=== PATIENT | male | born 1945 | race Caucasian/White ===

== ENCOUNTER 2018-05-04 18:18 | Inpatient (IN) | payer MEDICARE, OTHER ==
[2018-05-04 19:10] LABS: ADD MAN DIFF? NO
[2018-05-04] MEDS: ONDANSETRON 4 MG INJ IV (19:12)
[2018-05-04] MEDS: SOD CHLORIDE 0.9% 1,000 ML IV (19:12)
[2018-05-04 19:14] LABS: WHITE BLOOD COUNT 12.7 10^3/ul (4.8-10.8)
[2018-05-04 19:14] LABS: ABNORMAL IP MESSAGE 1; BASOPHIL # 0.1 10^3/ul (0.0-0.1); BASOPHILS % 0.6 % (0.0-2.0); EOSINOPHILS # 0.2 10^3/ul (0.0-0.5); EOSINOPHILS % 1.3 % (0.0-7.0); HEMATOCRIT 41.1 % (42.0-52.0); HEMOGLOBIN 13.8 g/dl (14.0-18.0); LYMPHOCYTES # 6.3 10^3/ul (0.8-2.9); LYMPHOCYTES % 49.7 % (15.0-51.0); MEAN CORPUSCULAR HEMOGLOBIN 30.2 pg (29.0-33.0); MEAN CORPUSCULAR HGB CONC 33.6 g/dl (32.0-37.0); MEAN CORPUSCULAR VOLUME 89.9 fl (82.0-101.0); MEAN PLATELET VOLUME 8.8 fl (7.4-10.4); MONOCYTE # 0.9 10^3/ul (0.3-0.9); MONOCYTES % 7.3 % (0.0-11.0); NEUTROPHIL # 5.1 10^3/ul (1.6-7.5); NEUTROPHILS % 40.5 % (39.0-77.0); PLATELET COUNT 327 10^3/UL (140-415); POSITIVE DIFF @See below; RED BLOOD COUNT 4.57 10^6/ul (4.70-6.10); RED CELL DISTRIBUTION WIDTH 17.7 % (11.5-14.5)
[2018-05-04 19:34] LABS: ALANINE AMINOTRANSFERASE 78 IU/L (13-69); ALBUMIN 4.7 g/dl (3.3-4.9); ALBUMIN/GLOBULIN RATIO 1.46; ALKALINE PHOSPHATASE 125 IU/L (42-121); ANION GAP 16 (5-13); ASPARTATE AMINO TRANSFERASE 97 IU/L (15-46); BILIRUBIN,INDIRECT 0.4 mg/dl (0-1.1); BILIRUBIN,TOTAL 0.4 mg/dl (0.2-1.3); BLOOD UREA NITROGEN 19 mg/dl (7-20); CALCIUM 9.9 mg/dl (8.4-10.2); CARBON DIOXIDE 32 mmol/L (21-31); CHLORIDE 93 mmol/L (97-110); CREATININE 1.01 mg/dl (0.61-1.24); GLUCOSE 97 mg/dl (70-220); LIPASE 160 U/L (23-300); POTASSIUM 4.2 mmol/L (3.5-5.1); SODIUM 141 mmol/L (135-144); TOTAL PROTEIN 7.9 g/dl (6.1-8.1)
[2018-05-04] MEDS: LORAZEPAM 2 MG INJ IV (20:06)
[2018-05-04] MEDS: ALBUTEROL 0.083% (NEB) 2.5 MG/3 ML AMP NEB (20:13)
[2018-05-05] MEDS: LORAZEPAM 2 MG INJ IV ×2 (04:57→10:33)
[2018-05-05] MEDS: LABETALOL HCL 20MG INJ IV (09:46)
[2018-05-05 10:12] LABS: ADD MAN DIFF? NO
[2018-05-05 10:16] LABS: WHITE BLOOD COUNT 10.1 10^3/ul (4.8-10.8)
[2018-05-05 10:16] LABS: BASOPHIL # 0.1 10^3/ul (0.0-0.1); BASOPHILS % 0.5 % (0.0-2.0); EOSINOPHILS % 0.3 % (0.0-7.0); HEMATOCRIT 41.2 % (42.0-52.0); HEMOGLOBIN 13.6 g/dl (14.0-18.0); LYMPHOCYTES # 2.7 10^3/ul (0.8-2.9); LYMPHOCYTES % 26.6 % (15.0-51.0); MEAN CORPUSCULAR HEMOGLOBIN 29.7 pg (29.0-33.0); MEAN PLATELET VOLUME 9.1 fl (7.4-10.4); MONOCYTE # 1.1 10^3/ul (0.3-0.9); MONOCYTES % 10.5 % (0.0-11.0); NEUTROPHIL # 6.2 10^3/ul (1.6-7.5); NEUTROPHILS % 61.5 % (39.0-77.0); PLATELET COUNT 283 10^3/UL (140-415); RED BLOOD COUNT 4.58 10^6/ul (4.70-6.10)
[2018-05-05] MEDS: MAGNESIUM SULFATE 2 GM, MULTIVITAMINS 10 ML, THIAMINE 100 MG, FOLIC ACID 1 MG in SOD CH... IV (10:22)
[2018-05-05 10:39] LABS: ALANINE AMINOTRANSFERASE 76 IU/L (13-69); ALBUMIN 4.3 g/dl (3.3-4.9); ALBUMIN/GLOBULIN RATIO 1.72; ALKALINE PHOSPHATASE 105 IU/L (42-121); ANION GAP 12 (5-13); ASPARTATE AMINO TRANSFERASE 74 IU/L (15-46); BILIRUBIN,INDIRECT 0.6 mg/dl (0-1.1); BILIRUBIN,TOTAL 0.6 mg/dl (0.2-1.3); BLOOD UREA NITROGEN 22 mg/dl (7-20); CALCIUM 9.6 mg/dl (8.4-10.2); CARBON DIOXIDE 32 mmol/L (21-31); CHLORIDE 97 mmol/L (97-110); CREATININE 0.83 mg/dl (0.61-1.24); GLUCOSE 148 mg/dl (70-220); POTASSIUM 4.1 mmol/L (3.5-5.1); SODIUM 141 mmol/L (135-144); TOTAL PROTEIN 6.8 g/dl (6.1-8.1)
[2018-05-05 10:43] LABS: ETHANOL < 10.0 mg/dl (0-0)
[2018-05-05] MEDS ORDERED: ACETAMINOPHEN 325 MG TAB PO (11:00)
[2018-05-05] MEDS: hydrALAzine 20 MG INJ IV (13:51)
[2018-05-05] MEDS: CHLORDIAZEPOXIDE 25 MG CAP PO ×2 (15:51→20:19)
[2018-05-05] MEDS: PANTOPRAZOLE (EC) 40 MG TAB PO (18:25)
[2018-05-05] MEDS: THIAMINE 100 MG TAB PO (20:18)
[2018-05-05] MEDS: ONDANSETRON 4 MG INJ IV (20:31)
[2018-05-05] MEDS: NACL 0.9% 3 ML SYG IV (20:33)
[2018-05-06] MEDS: CHLORDIAZEPOXIDE 25 MG CAP PO ×6 (01:59→23:59)
[2018-05-06 06:30] LABS: ADD MAN DIFF? NO
[2018-05-06 06:46] LABS: WHITE BLOOD COUNT 7.1 10^3/ul (4.8-10.8)
[2018-05-06 06:46] LABS: BASOPHILS % 0.6 % (0.0-2.0); EOSINOPHILS # 0.2 10^3/ul (0.0-0.5); EOSINOPHILS % 2.5 % (0.0-7.0); HEMATOCRIT 39.6 % (42.0-52.0); LYMPHOCYTES # 2.2 10^3/ul (0.8-2.9); LYMPHOCYTES % 31.4 % (15.0-51.0); MEAN CORPUSCULAR HEMOGLOBIN 29.8 pg (29.0-33.0); MEAN CORPUSCULAR HGB CONC 32.8 g/dl (32.0-37.0); MEAN CORPUSCULAR VOLUME 90.8 fl (82.0-101.0); MONOCYTES % 13.4 % (0.0-11.0); NEUTROPHIL # 3.7 10^3/ul (1.6-7.5); NEUTROPHILS % 51.5 % (39.0-77.0); PLATELET COUNT 224 10^3/UL (140-415); RED BLOOD COUNT 4.36 10^6/ul (4.70-6.10)
[2018-05-06 07:02] LABS: HEMOGLOBIN A1C 5.8 % (0-5.9)
[2018-05-06 07:41] LABS: ALANINE AMINOTRANSFERASE 57 IU/L (13-69); ALBUMIN 3.8 g/dl (3.3-4.9); ALBUMIN/GLOBULIN RATIO 1.46; ALKALINE PHOSPHATASE 81 IU/L (42-121); ANION GAP 9 (5-13); ASPARTATE AMINO TRANSFERASE 57 IU/L (15-46); BILIRUBIN,INDIRECT 0.7 mg/dl (0-1.1); BILIRUBIN,TOTAL 0.7 mg/dl (0.2-1.3); BLOOD UREA NITROGEN 17 mg/dl (7-20); CALCIUM 9.2 mg/dl (8.4-10.2); CARBON DIOXIDE 32 mmol/L (21-31); CHLORIDE 100 mmol/L (97-110); CREATININE 0.84 mg/dl (0.61-1.24); GLUCOSE 98 mg/dl (70-220); POTASSIUM 3.3 mmol/L (3.5-5.1); SODIUM 141 mmol/L (135-144); TOTAL PROTEIN 6.4 g/dl (6.1-8.1)
[2018-05-06] MEDS: FOLIC ACID 1 MG TAB PO (08:41)
[2018-05-06] MEDS: PANTOPRAZOLE (EC) 40 MG TAB PO (08:42)
[2018-05-06] MEDS: THIAMINE 100 MG TAB PO (08:42)
[2018-05-06] MEDS: POTASSIUM CHLORIDE (SR) 20 MEQ TAB PO (11:38)
[2018-05-06] MEDS: AL HYDROX/MG HYDROX/SIMETH 30 ML CUP PO (19:51)
[2018-05-06] MEDS ORDERED: SOD CHLORIDE 0.9% 1,000 ML IV (22:00)
[2018-05-06] MEDS: MULTIVITAMINS 10 ML, THIAMINE 100 MG, FOLIC ACID 1 MG in SOD CHLORIDE 0.9% 1,000 ML IVPB (22:10)
[2018-05-07] MEDS: hydrALAzine 20 MG INJ IV (04:16)
[2018-05-07 06:39] LABS: ANION GAP 9 (5-13); BLOOD UREA NITROGEN 18 mg/dl (7-20); CALCIUM 8.9 mg/dl (8.4-10.2); CARBON DIOXIDE 28 mmol/L (21-31); CHLORIDE 102 mmol/L (97-110); CREATININE 0.76 mg/dl (0.61-1.24); GLUCOSE 111 mg/dl (70-220); MAGNESIUM 1.9 mg/dl (1.7-2.5); PHOSPHORUS 2.6 mg/dl (2.5-4.9); POTASSIUM 3.2 mmol/L (3.5-5.1); SODIUM 139 mmol/L (135-144)
[2018-05-07] MEDS: CHLORDIAZEPOXIDE 25 MG CAP PO ×4 (06:41→20:42)
[2018-05-07] MEDS: LISINOPRIL 5 MG TAB PO (08:03)
[2018-05-07] MEDS: FOLIC ACID 1 MG TAB PO (08:03)
[2018-05-07] MEDS: PANTOPRAZOLE (EC) 40 MG TAB PO (08:03)
[2018-05-07] MEDS: MULTIVITAMINS 10 ML, THIAMINE 100 MG, FOLIC ACID 1 MG in SOD CHLORIDE 0.9% 1,000 ML IVPB (08:04)
[2018-05-07] MEDS: POTASSIUM CHLORIDE (SR) 20 MEQ TAB PO (11:28)
[2018-05-08] MEDS: CHLORDIAZEPOXIDE 25 MG CAP PO ×3 (00:46→16:45)
[2018-05-08] MEDS: PANTOPRAZOLE (EC) 40 MG TAB PO (06:35)
[2018-05-08] MEDS: MULTIVITAMINS 10 ML, THIAMINE 100 MG, FOLIC ACID 1 MG in SOD CHLORIDE 0.9% 1,000 ML IVPB (09:18)
[2018-05-08] MEDS: FOLIC ACID 1 MG TAB PO (09:18)
[2018-05-08] MEDS: LISINOPRIL 5 MG TAB PO (11:03)
== END 2018-05-08 19:40 | DRG 74 ==
LOC: E/R 18:18 → 6WM 05-05 11:00 → 2NE 05-07 21:00
DX: G62.1 Alcoholic polyneuropathy (principal); F10.230 Alcohol dependence with withdrawal, uncomplicated; G61.0 Guillain-Barre syndrome; F10.239 Alcohol dependence with withdrawal, unspecified; I10 Essential (primary) hypertension; Y90.0 Blood alcohol level of less than 20 mg/100 ml; F10.229 Alcohol dependence with intoxication, unspecified
CPT/HCPCS: 36415; 71045; 80048; 80053; 80307; 83036; 83690; 83735; 84100; 85025; 94664; 96361; 96374; 96375; 96376; 97116; 97162; 97530; 99285-25; G0378